=== PATIENT | female | born 1950 | race Hispanic/Latino ===

== ENCOUNTER 2018-01-13 11:32 | Emergency (ER) | payer MEDICARE, OTHER ==
[~2018-01-13] VITALS: Ht 162.6 cm; Wt 72.6 kg
[~2018-01-13 11:32] MED LIST: ASA81 MG MT; Z.0.GLIPIZIDE10 MG MT; Z.0.JANUVIA100 MG MT; Z.0.LISINOPRIL20 MG MT; Z.1.METFORMIN HCL100 MT; Z.2.METFORMIN HCL500 MT
[2018-01-13] MEDS ORDERED: HYDROCODONE/APAP 5MG-325MG TAB PO ONE (11:45)
--- NOTE | 2018-01-13 14:25 | Diagnostic Imaging Report ---
LEFT ANKLE - 3 VIEWS HISTORY: Trauma, fall COMPARISON: None available. FINDINGS: An overlying splint partially limits bone detail. Bones: Diffusely decreased mineralization of the osseous structures further limits bone detail. Small plantar calcaneal and dorsal calcaneal enthesophytes. Joints: The ankle mortise is symmetric. Soft tissues: Nonspecific lateral soft tissue swelling. IMPRESSION: 1. Nonspecific lateral soft tissue swelling. 2. Diffuse osseous demineralization, recommend correlation with bone densitometry. 3. If signs and symptoms persist, recommend routine follow-up radiographs after splint removal for further evaluation. Signed by: Dr. Garcia Yao D.O., M.M.M. on 01/13/2018 2:22 PM
--- NOTE | 2018-01-13 14:27 | Diagnostic Imaging Report ---
LEFT KNEE - 3 VIEWS HISTORY: Fall, trauma COMPARISON: None available. FINDINGS: Bones: Diffusely decreased mineralization of the osseous structures limits bone detail. Oblique intra-articular fracture of the patella. Joints: Large lipohemarthrosis. Minimal tricompartmental degenerative changes. Soft tissues: Regional soft tissue swelling. Diffuse scattered atherosclerotic vascular calcifications. IMPRESSION: Acute intra-articular patellar fracture with associated large lipohemarthrosis. Signed by: Dr. Garcia Yao D.O., M.M.M. on 01/13/2018 2:24 PM
[2018-01-13] MEDS ORDERED: TYLENOL WITH C1 EACH PO (15:10)
[2018-01-20] MEDS ORDERED: CALCIUM 500+D1 EACH PO (11:06)
[2018-01-20] MEDS ORDERED: CETIRIZINE HCL10 MG PO (11:07)
[2018-01-20] MEDS ORDERED: MONTELUKAST SOD10 MG PO (11:08)
[2018-01-20] MEDS ORDERED: NIFEDIPINE ER30 M1 PO (11:09)
[2018-01-20] MEDS ORDERED: ATENOLOL50 MG PO (11:10)
[2018-01-20] MEDS ORDERED: ALBUTEROL0.63 MG/3 NEB (11:11)
[2018-01-20] MEDS ORDERED: ALBUTEROL0.63 MG/3 INH (11:11)
[2018-01-21] MEDS ORDERED: MEGA RED PO (09:49)
[2018-01-21] MEDS ORDERED: FISH OIL 1,0001 EAC2 PO (09:49)
== END 2018-01-13 16:16 | disposition home or self-care (01) ==
LOC: ER 11:32
DX: S82.034A Nondisplaced transverse fracture of right patella, initial encounter for closed fracture (principal); M25.571 Pain in right ankle and joints of right foot; S80.212A Abrasion, left knee, initial encounter; S50.312A Abrasion of left elbow, initial encounter; W01.0XXA Fall on same level from slipping, tripping and stumbling without subsequent striking against object, initial encounter; Y92.511 Restaurant or cafe as the place of occurrence of the external cause; I10 Essential (primary) hypertension; E11.9 Type 2 diabetes mellitus without complications; J45.909 Unspecified asthma, uncomplicated
CPT/HCPCS: 99283

== ENCOUNTER → 2018-04-16 | Outpatient (RCR) | payer MEDICARE ==
[~2018-04-16] MED LIST changes: +ALBUTEROL0.63 MG/3 INH; +ALBUTEROL0.63 MG/3 NEB; +ATENOLOL50 MG PO; +CALCIUM 500+D1 EACH PO; +CETIRIZINE HCL10 MG PO; +FISH OIL 1,0001 EAC2 PO; +MEGA RED PO; +MONTELUKAST SOD10 MG PO; +NIFEDIPINE ER30 M1 PO; +TYLENOL WITH C1 EACH PO
== END ==
LOC: PT 03-30 09:33
PROVIDERS: ATTEND Specialist
DX: S82.002D Unspecified fracture of left patella, subsequent encounter for closed fracture with routine healing (principal); M25.562 Pain in left knee; M25.462 Effusion, left knee; M62.81 Muscle weakness (generalized)

== ENCOUNTER → 2018-05-14 | Outpatient (RCR) | payer MEDICARE | LOC: PT 04-17 07:50 | PROVIDERS: ATTEND Specialist | DX: S82.002D Unspecified fracture of left patella, subsequent encounter for closed fracture with routine healing (principal); M25.562 Pain in left knee; M25.462 Effusion, left knee; M62.81 Muscle weakness (generalized) | CPT/HCPCS: 97139 ==

== ENCOUNTER 2018-06-05 07:53 | Outpatient (RCR) | payer MEDICARE | END 2018-06-14 | LOC: PT 07:53 | PROVIDERS: ATTEND Specialist | DX: S82.002D Unspecified fracture of left patella, subsequent encounter for closed fracture with routine healing (principal); M25.562 Pain in left knee; M25.462 Effusion, left knee; M62.81 Muscle weakness (generalized) ==

== ENCOUNTER 2022-08-13 15:37 | Emergency (ER) | payer MEDICARE ==
[~2022-08-13] VITALS: Ht 162.6 cm; Wt 72.6 kg
[2022-08-13 17:38] VITALS: O2SAT 99
== END 2022-08-13 17:42 | disposition home or self-care (01) ==
LOC: ER 15:47
DX: R06.02 Shortness of breath (principal); J06.9 Acute upper respiratory infection, unspecified; R05.9 Cough, unspecified; I10 Essential (primary) hypertension; E11.9 Type 2 diabetes mellitus without complications; J45.909 Unspecified asthma, uncomplicated; Z20.822 Contact with and (suspected) exposure to COVID-19
CPT/HCPCS: 71046; 87400; 99283; U0002